=== PATIENT | male | born 1980 | race African-American/Black ===

== ENCOUNTER 2018-01-11 02:02 | Emergency (ER) | payer OTHER ==
[~2018-01-11] VITALS: Ht 182.9 cm; Wt 72.7 kg
[2018-01-11 02:35] VITALS: BP 140/80
[2018-01-11] MEDS ORDERED: KETOROLAC TROMETHAMINE 30 MG/ML VIAL IM ONE (03:00)
== END 2018-01-11 03:00 | disposition home or self-care (01) ==
LOC: EMS 02:03
DX: K02.9 Dental caries, unspecified (principal)
CPT/HCPCS: 96372; 99283; J1885

== ENCOUNTER 2018-04-13 15:42 | Emergency (ER) | payer SELFPAY ==
[~2018-04-13] VITALS: Ht 182.9 cm; Wt 73.0 kg
[2018-04-13] MEDS ORDERED: IBUP-2071 PO (15:48)
[2018-04-13] MEDS ORDERED: CARBAMIDE PEROXIDE 6.5% 15 ML OTIC SOLUTION AU ONE (16:15)
[2018-04-13] MEDS ORDERED: ACETAMINOPHEN 500 MG TABLET PO ONE (16:15)
[2018-04-13] MEDS ORDERED: AMOXICILLIN TRIHYDRATE 250 MG CAPSULE PO ONE (17:00)
[2018-04-13 17:22] VITALS: BP 126/74
== END 2018-04-13 17:24 | disposition home or self-care (01) ==
LOC: EMS 15:44
DX: H66.91 Otitis media, unspecified, right ear (principal); H61.23 Impacted cerumen, bilateral
CPT/HCPCS: 69209; 99283

== ENCOUNTER 2021-05-09 14:28 | Emergency (ER) | payer OTHER ==
[~2021-05-09] VITALS: Ht 182.9 cm; Wt 80.0 kg
[~2021-05-09 14:28] MED LIST: IBUP-2071 PO
[2021-05-09 15:49] VITALS: BP 124/84
== END 2021-05-09 15:59 | disposition home or self-care (01) ==
LOC: EMS 14:28
DX: S02.5XXA Fracture of tooth (traumatic), initial encounter for closed fracture (principal); F17.210 Nicotine dependence, cigarettes, uncomplicated; V49.9XXA Car occupant (driver) (passenger) injured in unspecified traffic accident, initial encounter; Y93.89 Activity, other specified; Y92.481 Parking lot as the place of occurrence of the external cause; Y99.8 Other external cause status
CPT/HCPCS: 99283; Z7502

== ENCOUNTER 2022-06-24 10:03 | Emergency (ER) | payer OTHER ==
[~2022-06-24] VITALS: Ht 182.9 cm; Wt 78.2 kg
[~2022-06-24 10:03] MED LIST changes: +IBUP-1493 PO; -IBUP-2071 PO
[2022-06-24] MEDS: KETOROLAC TROMETHAMINE 60 MG/2 ML VIAL IM ONE (11:25)
[2022-06-24 12:16] VITALS: BP 118/71
== END 2022-06-24 13:04 | disposition home or self-care (01) ==
LOC: EMS 10:05
DX: S16.1XXA Strain of muscle, fascia and tendon at neck level, initial encounter (principal); F17.210 Nicotine dependence, cigarettes, uncomplicated; V43.52XA Car driver injured in collision with other type car in traffic accident, initial encounter; Y93.89 Activity, other specified; Y92.89 Other specified places as the place of occurrence of the external cause; Y99.8 Other external cause status
CPT/HCPCS: 99283; 96372; J1885

== ENCOUNTER 2022-07-07 00:11 | Emergency (ER) | payer OTHER ==
[~2022-07-07] VITALS: Ht 182.9 cm; Wt 79.5 kg
[2022-07-07] MEDS ORDERED: CYCL-448 PO (02:03)
[2022-07-07] MEDS ORDERED: CYCLOBENZAPRINE HCL 10 MG TABLET PO ONE (02:15)
[2022-07-07 02:17] VITALS: BP 126/63
[2022-07-07 02:23] LABS: BASOPHILS % (AUTO) 0.5 % (0.0-2.0); EOSINOPHILS % (AUTO) 3.6 % (1.0-6.0); HEMATOCRIT 36.5 % (41-53); HEMOGLOBIN 11.9 g/dL (13.5-17.5); LYMPHOCYTES # (AUTO) 2.7 K/uL (1.0-4.8); LYMPHOCYTES % (AUTO) 35.7 % (22.0-44.0); MEAN CORPUSCULAR HEMOGLOBIN 26.9 pg (26.0-34.0); MEAN CORPUSCULAR HGB CONC 32.8 G/dL (31.0-37.0); MEAN CORPUSCULAR VOLUME 82 fL (80-100); MONOCYTES # (AUTO) 0.7 K/uL (0.1-1.0); MONOCYTES % (AUTO) 9.8 % (2.0-9.0); NEUTROPHILS # (AUTO) 3.8 K/uL (1.8-7.7); NEUTROPHILS % (AUTO) 50.4 % (40.0-70.0); PLATELET COUNT (AUTO) 190 K/uL (150-450); RED BLOOD CELL COUNT(AUTO) 4.44 MIL/uL (4.50-5.90)
[2022-07-07 02:31] LABS: ANION GAP 5 mmol/L (8-16); CALCIUM, TOTAL 8.8 mg/dL (8.8-10.5); CARBON DIOXIDE 32 mmol/L (22-29); CHLORIDE 104 mmol/L (98-107); CREATININE 1.22 mg/dL (0.60-1.30); GLOMERULAR FILTR. RATE CALC > 60 mL/min (>60); GLUCOSE,RANDOM 100 mg/dL (70-110); POTASSIUM 4.2 mmol/L (3.5-5.1); SODIUM SERUM 141 mmol/L (136-145); UREA NITROGEN, BLOOD 12 mg/dL (7-18)
[2022-07-07 02:35] LABS: PHOSPHORUS 3.9 mg/dL (2.5-4.9)
== END 2022-07-07 03:08 | disposition home or self-care (01) ==
LOC: EMS 00:11
DX: M62.830 Muscle spasm of back (principal); F17.210 Nicotine dependence, cigarettes, uncomplicated
CPT/HCPCS: 80048; 83735; 84100; 85025; 99283